=== PATIENT | female | born 1980 | race Caucasian/White ===

== ENCOUNTER 2022-11-16 13:25 | Outpatient (CLI) | payer BC, SELFPAY ==
--- NOTE | 2022-11-16 13:40 | CRLHL7_ITS ---
For Patients: As a result of the Cures Act, medical imaging exams and procedure reports are released immediately into your electronic medical record. You may view this report before your referring provider. If you have questions, please contact your health care provider. BILATERAL SCREENING MAMMOGRAM WITH COMPUTER-AIDED DETECTION AND TOMOSYNTHESIS TECHNIQUE: CC and MLO views were obtained. These mammographic images have been obtained using full-field digital technique. These mammographic images were interpreted with the benefit of computer-aided detection. Breast tomosynthesis was used in this interpretation. COMPARISON FILM: 10/29/2021. FINDINGS: The breasts are extremely dense, which lowers the sensitivity of mammography. IMPRESSION: There is no radiographic evidence for malignancy. ASSESSMENT: BI-RADS Category 1: Negative RECOMMENDATION: Routine screening mammogram in 1 year. A lay language report of this examination will be provided to the patient. CORDELL MÁRQUEZ M.D. Diagnostic Radiologist [email or web address] [email or web address]/fox Transcribed: 11/17/2022, 1:[address]/Dictated by: Cordell Márquez MD @ 11/17/2022 12:26:00 PM (Electronically Signed)
== END 2022-11-16 13:26 | disposition home or self-care (01) ==
LOC: MAMMO 13:27
PROVIDERS: Visit Provider Obstetrics & Gynecology
DX: Z12.31 Encounter for screening mammogram for malignant neoplasm of breast (principal); R92.2 Inconclusive mammogram
CPT/HCPCS: 77063; 77067

== ENCOUNTER 2023-12-10 13:26 | Outpatient (CLI) | payer BC, SELFPAY ==
--- NOTE | 2023-12-10 13:40 | MM_ITS ---
Patient: LAURA BOYD Facility:?[facility] Patient ID:?[id number] Site Patient ID:?[id number]. Site :?[id number] Study:?XRay-Breast Bilateral 3D w/CAD-12/10/2023 1:47:29 PM Ordering Physician:Bailee Final Report: BILATERAL SCREENING MAMMOGRAM WITH COMPUTER-AIDED DETECTION AND TOMOSYNTHESIS TECHNIQUE: CC and MLO views were obtained. These mammographic images have been obtained using full-field digital technique. These mammographic images were interpreted with the benefit of computer-aided detection. Breast Tomosynthesis was used in this interpretation. COMPARISON FILM: 11/16/2022, 10/29/2021. FINDINGS: The breasts are heterogeneously dense, which may obscure small masses. IMPRESSION: There is no radiographic evidence for malignancy. ASSESSMENT: BI-RADS Category 1: Negative RECOMMENDATION: Routine screening mammogram in 1 year. A lay language report of this examination will be provided to the patient. Cordell Bryant M.D. Diagnostic Radiologist [email or web address] DSM/sp R& Transcribed: 3:00 [address] SP/Dictated by: Cordell Bryant MD @ 12/13/2023 9:27:00 AM Signed by:?Cordell Bryant MD @12/13/2023 3:18:20 PM (Electronic Signature)
== END 2023-12-10 13:27 | disposition home or self-care (01) ==
LOC: MAMMO 13:27
PROVIDERS: Visit Provider Obstetrics & Gynecology
DX: Z12.31 Encounter for screening mammogram for malignant neoplasm of breast (principal); R92.2 Inconclusive mammogram
CPT/HCPCS: 77063; 77067

== ENCOUNTER 2024-01-17 08:33 | Outpatient (CLI) | payer BC, SELFPAY | END 2024-01-17 08:34 | disposition home or self-care (01) | LOC: NFLDREF 08:35 | PROVIDERS: Visit Provider Obstetrics & Gynecology | DX: Z01.419 Encounter for gynecological examination (general) (routine) without abnormal findings (principal); R03.0 Elevated blood-pressure reading, without diagnosis of hypertension; E78.00 Pure hypercholesterolemia, unspecified | CPT/HCPCS: 80061 ==

== ENCOUNTER 2025-02-08 15:24 | Outpatient (CLI) | payer BC, SELFPAY ==
--- NOTE | 2025-02-08 15:40 | CRLHL7_ITS ---
For Patients: As a result of the Century Cures Act, medical imaging exams and procedure reports are released immediately into your electronic medical record. You may view this report before your referring provider. If you have questions, please contact your health care provider. INDICATION: BILATERAL SCREENING MAMMOGRAM, ASYMPTOMATIC 45 Y/O FEMALE COMPARISON: 12/10/2023, 11/16/2022, 10/29/2021 TECHNIQUE: Digital mammogram in CC and MLO projections including computer-aided detection (CAD) and tomosynthesis. BREAST COMPOSITION: The breasts are extremely dense, which lowers the sensitivity of mammography. FINDINGS: No suspicious findings. ASSESSMENT: BI-RADS 1 Negative RECOMMENDATION: Annual screening mammogram. A lay language report of this examination will be provided to the patient. Dictated by: Cordell Bryant MD @ 02/09/2025 09:10:29 (Electronically Signed)
== END 2025-02-08 15:25 | disposition home or self-care (01) ==
LOC: MAMMO 15:24
PROVIDERS: Visit Provider Obstetrics & Gynecology
DX: Z12.31 Encounter for screening mammogram for malignant neoplasm of breast (principal); R92.343 Mammographic extreme density, bilateral breasts
CPT/HCPCS: 77063; 77067